=== PATIENT | female | born 1980 | race Caucasian/White ===

== ENCOUNTER 2017-07-15 18:50 | Emergency (ER) | payer OTHER ==
[2017-07-16] MEDS ORDERED: MOTRIN PO ONE (00:27)
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
[2017-07-16] MEDS ORDERED: FLEXERIL PO ONE (00:36)
[2017-07-16 02:13] VITALS: BP 120/68
== END 2017-07-16 00:54 | disposition home or self-care (01) ==
LOC: ED 18:50
DX: M62.838 Other muscle spasm (principal); F17.200 Nicotine dependence, unspecified, uncomplicated; F12.90 Cannabis use, unspecified, uncomplicated; V49.49XA Driver injured in collision with other motor vehicles in traffic accident, initial encounter; Y93.89 Activity, other specified; Y99.8 Other external cause status; Y92.488 Other paved roadways as the place of occurrence of the external cause
CPT/HCPCS: 99282